=== PATIENT | female | born 1990 | race Caucasian/White ===

== ENCOUNTER 2019-01-11 14:49 | Emergency (ER) | payer SELFPAY ==
--- OUTSIDE RECORDS SUMMARY | 2019-01-11 15:09 | XMS REPORT ---
:1990 [facility] Address [address] [place] [address] Care Team Providers Name Role Phone Unavailable Unavailable Unavailable Problems This patient has no known problems. Allergies, Adverse Reactions, Alerts This patient has no known allergies or adverse reactions. Medications This patient has no known medications.
[2019-01-11] MEDS ORDERED: NA CHLORIDE 0.9% 1,000 ML ONE ×2 (15:20→17:01)
[2019-01-11] MEDS ORDERED: KETOROLAC 30 MG/ML INJ ONE (15:20)
[2019-01-11] MEDS ORDERED: ONDANSETRON 4 MG/2 ML VIAL ONE ×2 (15:20→17:40)
[2019-01-11 15:23] LABS: Absolute Lymphocytes (CBC) 0.7 K/uL (0.7-4.9); Absolute Monocytes 0.3 K/uL (0.1-1.3); Absolute Neutrophil 10.5 K/uL (1.8-8.0); Basophils % 0.2 % (0-1.3); Eosinophils % 1.1 % (0-4.4); Hematocrit 46.2 % (36.0-45.0); Lymphocytes % 5.7 % (15.3-44.8); MPV 9.9 fL (7.6-11.3); RBC Red Blood Cell Count 5.06 M/uL (3.86-4.86)
[2019-01-11 15:38] LABS: Albumin 4.2 g/dL (3.4-5.0); Bilirubin Total 0.5 mg/dL (0.2-1.0); Potassium 3.9 mmol/L (3.5-5.1); Protein, Total 7.7 g/dL (6.4-8.2)
[2019-01-11 15:44] LABS: Blood Morphology Comment NOT SEEN (NOT SEEN); Platelet Estimate ADEQ; Urine White Blood Cell Casts OK
[2019-01-11 15:51] LABS: Urine Bacteria <20 /HPF (<20); Urine Culture Reflex Order REFLEXED
--- NOTE | 2019-01-11 17:17 | RAD REPORT ---
EXAM DESCRIPTION: CT - Stone Protocol - 01/11/2019 5:05 pm CLINICAL HISTORY: Abdominal pain. Flank pain COMPARISON: 2013 TECHNIQUE: Computed axial tomography of the abdomen pelvis was obtained without oral or IV contrast. Lack of IV and oral contrast limits evaluation of solid organs, bowel, and vessels. Coronal reformat chelsi images were obtained and reviewed. All CT scans are performed using dose optimization technique as appropriate and may include automated exposure control or mA/KV adjustment according to patient size. FINDINGS: A renal calculus is not seen. An ureteral calculus is not noted. A bladder calculus is not present. The liver, spleen, pancreas and adrenals appear grossly normal There is no evidence of diverticulitis. The appendix appears normal Fluid within nondilated large and small bowel Cholecystectomy IMPRESSION: 2 millimeter nonobstructing right renal calculus Fluid within nondilated large and small bowel may indicate an enteritis
[2019-01-11] MEDS ORDERED: CEFTRIAXONE/SWI 1gm 1 GM/10 ML SYR ONE (17:44)
--- NOTE | 2019-01-11 17:46 | EDPHYS ---
Physician Documentation [facility] Name: Claire Singh Age: 28 yrs Sex: Female : 1990 Arrival Date: 01/11/2019 Time: 14:52 Bed 28 Private MD: ED Physician Gavin Oates HPI: 01/11 15:06 This 28 yrs old Female presents to ER via Ambulatory with complaints of Back ps1 Pain, Abdominal Pain, Vomiting. 15:06 patient states over the last 2 days she started having right flank pain with radiation ps1 to the groin. Chills no specific fever. Pain is dull and throbbing. Pain rated as moderate and fluctuating. Additionally states that she has had urinary symptoms of frequency and dysuria. . 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 - Social history:: Smoking status: Patient/guardian denies using tobacco. - Ebola Screening: : Patient negative for fever greater than or equal to 101.5 degrees Fahrenheit, and additional compatible Ebola Virus Disease symptoms Patient denies exposure to infectious person Patient denies travel to an Ebola-affected area in the 21 days before illness onset No symptoms or risks identified at this time. ROS: 16:02 ENT: Negative for injury, pain, and discharge, Neck: Negative for injury, pain, and ps1 swelling, Cardiovascular: Negative for chest pain, palpitations, and edema, Respiratory: Negative for shortness of breath, cough, wheezing, and pleuritic chest pain, Back: Negative for injury and pain, MS/Extremity: Negative for injury and deformity, Skin: Negative for injury, rash, and discoloration, Neuro: Negative for headache, weakness, numbness, tingling, and seizure. 16:02 Constitutional: Positive for chills. 16:02 Abdomen/GI: Positive for abdominal pain, nausea and vomiting. 16:02 : Positive for urinary symptoms, flank pain, urinary frequency. Exam: 16:02 Constitutional: This is a well developed, well nourished patient who is awake, alert, ps1 and in no acute distress. Head/Face: Normocephalic, atraumatic. Eyes: Pupils equal round and reactive to light, extra-ocular motions intact. Lids and lashes normal. Conjunctiva and sclera are non-icteric and not injected. Chest/axilla: Normal chest wall appearance and motion. Nontender with no deformity. No lesions are appreciated. Cardiovascular: Regular rate and rhythm. No gallops, murmurs, or rubs. Normal PMI, no JVD. No pulse deficits. Respiratory: Lungs have equal breath sounds bilaterally, clear to auscultation and percussion. No rales, rhonchi or wheezes noted. No increased work of breathing, no retractions or nasal flaring. Abdomen/GI: Soft, non-tender, with normal bowel sounds. No distension or tympany. No guarding or rebound. No evidence of tenderness throughout. Skin: Warm, dry with normal turgor. Normal color with no rashes, no lesions, and no evidence of cellulitis. MS/ Extremity: Pulses equal, no cyanosis. Neurovascular intact. Full, normal range of motion. Neuro: Awake and alert, GCS 15, oriented to person, place, time, and situation. Cranial nerves II-XII grossly intact. Sensory grossly intact. Vital Signs: 15:01 BP 138 / 77; Pulse 92; Resp 18; Temp 97.8; Pulse Ox 100% on R/A; Pain 8/10; sg 15:56 BP 100 / 59; Pulse 75; Resp 18 S; Temp 98(O); Pulse Ox 100% on R/A; ca1 16:34 BP 98 / 68; Pulse 73; Resp 18 S; Temp 98.6(O); Pulse Ox 100% on R/A; ca1 16:44 BP 96 / 63; Pulse 76; Resp 17 S; Temp 98.6(O); Pulse Ox 100% on R/A; ca1 17:24 BP 94 / 57; Pulse 76; Resp 18 S; Pulse Ox 100% on R/A; ca1 17:41 BP 90 / 58; Pulse 79; Resp 17 S; Pulse Ox 100% on R/A; ca1 MDM: 16:25 Patient medically screened. ps1 01/11 15:04 Order name: CBC with Diff; Complete Time: 16:25 ps1 01/11 15:04 Order name: Lipase; Complete Time: 16:25 ps1 01/11 15:04 Order name: CMP; Complete Time: 16:25 ps1 01/11 15:26 Order name: CBC Smear Scan; Complete Time: 16:25 EDMS 01/11 15:28 Order name: Urine Microscopic Only; Complete Time: 16:25 ca1 01/11 15:38 Order name: Urine Dipstick--Ancillary (enter results) ms 01/11 15:38 Order name: Urine --Ancillary (enter results) ms 01/11 15:52 Order name: Urine Culture EDMS 01/11 16:48 Order name: CT Stone Protocol; Complete Time: 17:27 ps1 01/11 15:04 Order name: IV Saline Lock; Complete Time: 15:16 ps1 01/11 15:04 Order name: Labs collected and sent; Complete Time: 15:16 ps1 01/11 15:04 Order name: Urine Dipstick-Ancillary (obtain specimen); Complete Time: 15:16 ps1 01/11 15:04 Order name: NPO; Complete Time: 15:05 ps1 Administered Medications: 15:15 Drug: NS 0.9% 1000 ml Route: IV; Rate: 1 bolus; Site: left antecubital; ca1 16:05 Follow up: Response: No adverse reaction; IV Status: Completed infusion ca1 15:15 Drug: Zofran 4 mg Route: IVP; Site: left antecubital; ca1 16:05 Follow up: Response: No adverse reaction; Nausea is decreased ca1 15:17 Drug: TORadol 30 mg Route: IVP; Site: left antecubital; ca1 16:05 Follow up: Response: No adverse reaction; Pain is decreased ca1 16:15 Drug: NS 0.9% 1000 ml Route: IV; Rate: 1 bolus; Site: left antecubital; ca1 17:30 Follow up: Response: No adverse reaction; IV Status: Completed infusion ca1 17:30 Drug: Rocephin 1 grams Route: IV; Rate: bolus; Site: left antecubital; ca1 17:50 Follow up: Response: No adverse reaction; IV Status: Completed infusion ca1 17:30 Drug: Zofran 4 mg Route: IVP; Site: left antecubital; ca1 17:50 Follow up: Response: No adverse reaction; Nausea is decreased ca1 Disposition: 01/11/19 17:45 Discharged to Home. Impression: Acute cystitis. - Condition is Stable. - Discharge Instructions: Urinary Tract Infection, Adult. - Prescriptions for Keflex 500 mg Oral Capsule - take 1 capsule by ORAL route every 8 hours for 10 days; 30 capsule. Pyridium 200 mg Oral Tablet - take 1 tablet by ORAL route every 8 hours for 3 days; 9 tablet. Zofran 4 mg Oral Tablet - take 1 tablet by ORAL route every 12 hours As needed; 20 tablet. - Medication Reconciliation Form, Thank You Letter, Antibiotic Education, Prescription Opioid Use form. - Follow up: Private Physician; When: As needed; Reason: Recheck today's complaints, Continuance of care, Re-evaluation by your physician. Follow up: Emergency Department; When: As needed; Reason: Fever > 102 F, Trouble breathing, Worsening of condition. - Problem is new. - Symptoms have improved. Signatures: Dispatcher [employer] [facility] Francisco Javier Mathews RN RN sg Gavin Oates MD MD ps1 Andie Liriano RN RN ca1 Corrections: (The following items were deleted from the chart) 17:49 17:33 Urine Culture+[id number].LAB.BRZ ordered. [facility] EDAR 17:54 17:45 01/11/2019 17:45 Discharged to Home. Impression: Acute cystitis. Condition is ca1 Stable. Forms are Medication Reconciliation Form, Thank You Letter, Antibiotic Education, Prescription Opioid Use. Follow up: Private Physician; When: As needed; Reason: Recheck today's complaints, Continuance of care, Re-evaluation by your physician. Follow up: Emergency Department; When: As needed; Reason: Fever > 102 F, Trouble breathing, Worsening of condition. Problem is new. Symptoms have improved. ps1 17:58 17:54 01/11/2019 17:45 Discharged to Home. Impression: Acute cystitis. Condition is ca1 Stable. Discharge Instructions: Urinary Tract Infection, Adult. Prescriptions for Keflex 500 mg Oral Capsule - take 1 capsule by ORAL route every 8 hours for 10 days; 30 capsule, Pyridium 200 mg Oral Tablet - take 1 tablet by ORAL route every 8 hours for 3 days; 9 tablet, Zofran 4 mg Oral Tablet - take 1 tablet by ORAL route every 12 hours As needed; 20 tablet. and Forms are Medication Reconciliation Form, Thank You Letter, Antibiotic Education, Prescription Opioid Use. Follow up: Private Physician; When: As needed; Reason: Recheck today's complaints, Continuance of care, Re-evaluation by your physician. Follow up: Emergency Department; When: As needed; Reason: Fever > 102 F, Trouble breathing, Worsening of condition. Problem is new. Symptoms have improved. ca1
--- NOTE | 2019-01-11 17:46 | ER ---
Nurse's Notes [facility] Name: Claire Singh Age: 28 yrs Sex: Female : 1990 Arrival Date: 01/11/2019 Time: 14:52 Bed 28 Private MD: Diagnosis: Acute cystitis Presentation: 01/11 15:00 Presenting complaint: Patient states: Bilateral Flank and lower back pain that radiates sg around to bilateral lower quadrants, reports urinary frequency as well as nausea and vomiting that began last night. Transition of care: patient was not received from another setting of care. Onset of symptoms was January 11, 2019. Risk Assessment: Do you want to hurt yourself or someone else? Patient reports no desire to harm self or others. Initial Sepsis Screen: Does the patient meet any 2 criteria? No. Patient's initial sepsis screen is negative. Does the patient have a suspected source of infection? No. Patient's initial sepsis screen is negative. Care prior to arrival: None. 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 - Social history:: Smoking status: Patient/guardian denies using tobacco. - Ebola Screening: : Patient negative for fever greater than or equal to 101.5 degrees Fahrenheit, and additional compatible Ebola Virus Disease symptoms Patient denies exposure to infectious person Patient denies travel to an Ebola-affected area in the 21 days before illness onset No symptoms or risks identified at this time. Screenin:00 Abuse screen: Denies threats or abuse. Denies injuries from another. Nutritional ca1 screening: No deficits noted. Tuberculosis screening: No symptoms or risk factors identified. Fall Risk None identified. Assessment: 15:00 General: Appears in no apparent distress. comfortable, Behavior is calm, cooperative, ca1 appropriate for age. Pain: Complains of pain in low back area Pain radiates to abdomen Pain currently is 10 out of 10 on a pain scale. Quality of pain is described as sharp, Pain began 1 day ago. Neuro: Level of Consciousness is awake, alert, obeys commands, Oriented to person, place, time, situation. Cardiovascular: Heart tones S1 S2 present Capillary refill < 3 seconds Patient's skin is warm and dry. Respiratory: Airway is patent Respiratory effort is even, unlabored, Respiratory pattern is regular, symmetrical, Breath sounds are clear. GI: Abdomen is round non-distended, Bowel sounds present X 4 quads. Abd is soft X 4 quads Abdomen is tender to palpation in right lower quadrant and left lower quadrant Reports nausea, vomiting. : Urine is cloudy, Reports burning with urination, urgency, urinary frequency. EENT: No deficits noted. No signs and/or symptoms were reported regarding the EENT system. Derm: Skin is intact, is healthy with good turgor, Skin is pink, warm \T\ dry. Musculoskeletal: Circulation, motion, and sensation intact. Capillary refill < 3 seconds. 15:49 Reassessment: Patient appears in no apparent distress at this time. Patient and/or ca1 family updated on plan of care and expected duration. Pain level reassessed. Patient is alert, oriented x 3, equal unlabored respirations, skin warm/dry/pink. 16:41 Reassessment: Patient appears in no apparent distress at this time. Patient and/or ca1 family updated on plan of care and expected duration. Pain level reassessed. Patient is alert, oriented x 3, equal unlabored respirations, skin warm/dry/pink. 17:24 Reassessment: Patient appears in no apparent distress at this time. Patient and/or ca1 family updated on plan of care and expected duration. Pain level reassessed. Patient is alert, oriented x 3, equal unlabored respirations, skin warm/dry/pink. Pt reported feeling nauseated. Notified Dr. Oates. 17:41 Reassessment: Dr. Oates at bedside. ca1 17:52 Reassessment: Patient appears in no apparent distress at this time. Patient is alert, ca1 oriented x 3, equal unlabored respirations, skin warm/dry/pink. Patient states feeling better. Vital Signs: 15:01 BP 138 / 77; Pulse 92; Resp 18; Temp 97.8; Pulse Ox 100% on R/A; Pain 8/10; sg 15:56 BP 100 / 59; Pulse 75; Resp 18 S; Temp 98(O); Pulse Ox 100% on R/A; ca1 16:34 BP 98 / 68; Pulse 73; Resp 18 S; Temp 98.6(O); Pulse Ox 100% on R/A; ca1 16:44 BP 96 / 63; Pulse 76; Resp 17 S; Temp 98.6(O); Pulse Ox 100% on R/A; ca1 17:24 BP 94 / 57; Pulse 76; Resp 18 S; Pulse Ox 100% on R/A; ca1 17:41 BP 90 / 58; Pulse 79; Resp 17 S; Pulse Ox 100% on R/A; ca1 ED Course: 14:52 Patient arrived in ED. mr 14:57 Gavin Oates MD is Attending Physician. ps1 14:59 Andie Liriano, EVY is Primary Nurse. ca1 15:01 Triage completed. sg 15:01 Arm band placed on. sg 15:02 Patient has correct armband on for positive identification. Placed in gown. Bed in low ca1 position. Side rails up X 1. Pulse ox on. NIBP on. Warm blanket given. 15:13 Inserted saline lock: 20 gauge in left antecubital area, using aseptic technique. Blood ca1 collected. 15:21 Urine collected: clean catch specimen, cloudy, Amount Voided: 70mL. ca1 16:[address] mw3 17:04 CT completed. Patient tolerated procedure well. Patient moved back from CT. mw3 17:05 CT Stone Protocol In Process Unspecified. EDMS 17:52 No provider procedures requiring assistance completed. IV discontinued, intact, ca1 bleeding controlled, No redness/swelling at site. Pressure dressing applied. 17:56 Primary Nurse role handed off by Andie Liriano, EVY ca1 17:57 Andie Liriano, EVY is Primary Nurse. ca1 Administered Medications: 15:15 Drug: NS 0.9% 1000 ml Route: IV; Rate: 1 bolus; Site: left antecubital; ca1 16:05 Follow up: Response: No adverse reaction; IV Status: Completed infusion ca1 15:15 Drug: Zofran 4 mg Route: IVP; Site: left antecubital; ca1 16:05 Follow up: Response: No adverse reaction; Nausea is decreased ca1 15:17 Drug: TORadol 30 mg Route: IVP; Site: left antecubital; ca1 16:05 Follow up: Response: No adverse reaction; Pain is decreased ca1 16:15 Drug: NS 0.9% 1000 ml Route: IV; Rate: 1 bolus; Site: left antecubital; ca1 17:30 Follow up: Response: No adverse reaction; IV Status: Completed infusion ca1 17:30 Drug: Rocephin 1 grams Route: IV; Rate: bolus; Site: left antecubital; ca1 17:50 Follow up: Response: No adverse reaction; IV Status: Completed infusion ca1 17:30 Drug: Zofran 4 mg Route: IVP; Site: left antecubital; ca1 17:50 Follow up: Response: No adverse reaction; Nausea is decreased ca1 Outcome: 17:45 Discharge ordered by MD. ps1 17:52 Discharged to home ambulatory, with significant other. ca1 17:52 Condition: stable 17:52 Discharge instructions given to patient, Instructed on discharge instructions, follow up and referral plans. medication usage, Demonstrated understanding of instructions, follow-up care, medications, Prescriptions given X 3. 17:54 Patient left the ED. ca1 17:58 Patient left the ED. ca1 Signatures: Dispatcher [employer] EDMS Francisco Javier Mathews, RN RN sg Suzan Castillo mr Gavin Oates MD MD ps1 Kailee Cervantes mw3 Andie Liriano RN RN ca1 Corrections: (The following items were deleted from the chart) 15:27 15:00 Patient has correct armband on for positive identification. Placed in gown. Bed ca1 in low position. Side rails up X 1. ca1 15:27 15:00 Pulse ox on. NIBP on. ca1 ca1 15:27 15:00 Warm blanket given. ca1 ca1 16:43 16:34 BP 98 / 68; Pulse 73bpm; Resp 18bpm; Spontaneous; Pulse Ox 100% RA; ca1 ca1
[2019-01-11 18:20] VITALS: O2SAT 100
[2019-01-11 18:22] VITALS: TEMP 98.6
[2019-01-11 18:26] VITALS: BP 90/58
[2019-01-11 20:23] LABS: Urine Blood TRACE (NEG); Urine Glucose NEGATIVE (NEG); Urine Protein NEGATIVE (NEG); Urine Specific Gravity 1.015 (1.005-1.030)
== END 2019-01-11 17:58 | disposition home or self-care (01) ==
LOC: ER 14:49
DX: N30.00 Acute cystitis without hematuria (principal)
CPT/HCPCS: 36415; 74176; 76377; 80053; 81003; 81015; 81025; 83690; 85025; 87086; 87088; 96361; 96365; 96375; 99284; J0696; J2405; J7030

== ENCOUNTER 2019-04-25 18:21 | Emergency (ER) | payer SELFPAY ==
--- OUTSIDE RECORDS SUMMARY | 2019-04-25 18:23 | XMS REPORT ---
:1990 [facility] Address [address] [place] [address] Care Team Providers Name Role Phone Unavailable Unavailable Unavailable Problems This patient has no known problems. Allergies, Adverse Reactions, Alerts This patient has no known allergies or adverse reactions. Medications This patient has no known medications.
[2019-04-25] MEDS ORDERED: MORPHINE 4 MG/ML SYR ONE (19:14)
[2019-04-25] MEDS ORDERED: ONDANSETRON 4 MG/2 ML VIAL ONE (19:14)
[2019-04-25] MEDS ORDERED: NA CHLORIDE 0.9% 1,000 ML ONE (19:14)
[2019-04-25 19:17] LABS: Urine Blood 2+ (NEG); Urine Glucose NEGATIVE (NEG); Urine Protein 2+ (NEG); Urine Specific Gravity >1.030 (1.005-1.030); Urine pH 5.5 (5.0-7.0)
[2019-04-25 19:20] LABS: Urine Bacteria 20-50 /HPF (<20); Urine Culture Reflex Order REFLEXED
[2019-04-25 19:33] LABS: Basophils % 0.2 % (0-1.3); Hematocrit 38.5 % (36.0-45.0); Lymphocytes % 29.2 % (15.3-44.8); MPV 9.8 fL (7.6-11.3); RBC Red Blood Cell Count 4.34 M/uL (3.86-4.86)
[2019-04-25 19:42] LABS: Albumin 3.7 g/dL (3.4-5.0); Bilirubin Direct 0.1 mg/dL (0-0.2); Bilirubin Total 0.3 mg/dL (0.2-1.0); Potassium 3.5 mmol/L (3.5-5.1); Protein, Total 6.8 g/dL (6.4-8.2)
--- NOTE | 2019-04-25 20:36 | RAD REPORT ---
EXAM DESCRIPTION: CTAbdomen Pelvis W Contrast - 04/25/2019 8:23 pm CLINICAL HISTORY: Abdominal pain. ABD PAIN COMPARISON: CT ABD PELVIS W CONTRAST dated 07/22/2014; CT ABD PELVIS W CONTRAST dated 05/24/2014; Sto ne Protocol dated 01/11/[address]: [address] imaging of the abdomen and pelvis was performed with 100 ml non-ionic IV cont rast. All CT scans are performed using dose optimization technique as appropriate and may include automated exposure control or mA/KV adjustment according to patient size. FINDINGS: The lung bases are clear.Cholecystectomy clips. The liver, spleen, pancreas, adrenal glands and left kidney are within normal limits. Punctate calcul us is seen inferior right kidney. No bowel obstruction, free air, free fluid or abscess. The appendix is normal. No evidence of signi ficant lymphadenopathy. No suspicious bony findings. IMPRESSION: No acute intra-abdominal or pelvic finding. Punctate calculus is seen in the inferior right kidney.
--- NOTE | 2019-04-25 21:14 | ER ---
Nurse's Notes [facility] Name: Claire Singh Age: 28 yrs Sex: Female : 1990 Arrival Date: 04/25/2019 Time: 18:23 Bed 30 Private MD: Diagnosis: Lower abdominal pain, unspecified;Urinary tract infection, site not specified Presentation: 04/25 18:30 Presenting complaint: Patient states: Lower abd pain that radiates to back. Transition la1 of care: patient was not received from another setting of care. Onset of symptoms was April 25, 2019. Risk Assessment: Do you want to hurt yourself or someone else? Patient reports no desire to harm self or others. Initial Sepsis Screen: Does the patient meet any 2 criteria? No. Patient's initial sepsis screen is negative. Does the patient have a suspected source of infection? No. Patient's initial sepsis screen is negative. Care prior to arrival: None. 18:30 Method Of Arrival: Ambulatory la1 18:30 Acuity: UYEN 3 la1 Historical: - Allergies: 18:32 No Known Allergies; la1 - Home Meds: 18:32 Latuda 60 mg oral tab 1 tab once daily [Active]; Topamax 200 mg Oral tab 1 tab 2 times la1 per day [Active]; - PMHx: 18:32 None; la1 - PSHx: 18:32 Cholecystectomy; ; la1 - Immunization history:: Adult Immunizations up to date. - Social history:: Smoking status: Patient/guardian denies using tobacco. - Ebola Screening: : No symptoms or risks identified at this time. Screenin:02 Abuse screen: Denies threats or abuse. Nutritional screening: No deficits noted. jb4 Tuberculosis screening: No symptoms or risk factors identified. Fall Risk None identified. Assessment: 19:02 General: Appears in no apparent distress. uncomfortable, Behavior is calm, cooperative, jb4 appropriate for age. Pain: Complains of pain in right low back and right lower quadrant Pain radiates to left lower quadrant Pain currently is 7 out of 10 on a pain scale. Quality of pain is described as crampy, Pain began 1 day ago. Is continuous. Neuro: Level of Consciousness is awake, alert, obeys commands, Oriented to person, place, time, situation. Cardiovascular: Patient's skin is warm and dry. Respiratory: Airway is patent Respiratory effort is even, unlabored, Respiratory pattern is regular, symmetrical. GI: Abdomen is round non-distended, Reports lower abdominal pain. : Reports pain in right lower quadrant(s) in lower back urinary frequency, since yesterday. Denies discharge, inability to void, pain with urination. EENT: No deficits noted. No signs and/or symptoms were reported regarding the EENT system. Derm: Skin is intact, Skin is pink, warm \T\ dry. Musculoskeletal: Circulation, motion, and sensation intact. Range of motion: intact in all extremities. 20:00 Reassessment: Patient appears in no apparent distress at this time. Patient and/or jb4 family updated on plan of care and expected duration. Pain level reassessed. Patient is alert, oriented x 3, equal unlabored respirations, skin warm/dry/pink. 21:00 Reassessment: Patient appears in no apparent distress at this time. Patient and/or jb4 family updated on plan of care and expected duration. Pain level reassessed. Patient is alert, oriented x 3, equal unlabored respirations, skin warm/dry/pink. Vital Signs: 18:32 BP 94 / 62; Pulse 86; Resp 16; Temp 98.7; Pulse Ox 98% on R/A; Weight 86.18 kg; Height la1 5 ft. 5 in. (165.10 cm); 19:20 BP 110 / 72; Pulse 63; Resp 16; Pulse Ox 99% on R/A; jb4 20:15 BP 105 / 55; Pulse 82; Resp 16; Pulse Ox 100% on R/A; jb4 21:00 BP 101 / 67; Pulse 60; Resp 16; Pulse Ox 100% on R/A; jb4 18:32 Body Mass Index 31.62 (86.18 kg, 165.10 cm) la1 ED Course: 18:23 Patient arrived in ED. as 18:31 Triage completed. la1 18:32 Arm band placed on left wrist. la1 18:33 Sommer Duffy FNP-C is [facility]. kb 18:33 Herbert Latif MD is Attending Physician. kb 18:54 Jovanny Woo RN is Primary Nurse. jb4 19:02 Patient has correct armband on for positive identification. Bed in low position. Call jb4 light in reach. Side rails up X 1. Pulse ox on. NIBP on. 19:07 Radiology exam delayed due to lab results not completed at this time. (BUN/Creatinine) vm2 test not completed at this time. 19:21 Inserted saline lock: 22 gauge in right antecubital area, using aseptic technique. jb5 Blood collected. 19:22 Liver (Hepatic) Function Sent. jb5 19:22 Lipase Sent. jb5 19:34 Lipase Sent. jb4 19:34 Hepatic Function Sent. jb4 19:34 Basic Metabolic Panel Sent. jb4 19:34 CBC with Diff Sent. jb4 19:34 Liver (Hepatic) Function Sent. jb4 19:34 Lipase Sent. jb4 19:34 Urine Culture Sent. jb4 19:41 Radiology exam delayed due to lab results not completed at this time. (BUN/Creatinine). 2 20:26 CT Abd/Pelvis - IV Contrast Only In Process Unspecified. EDMS 21:19 No provider procedures requiring assistance completed. IV discontinued, intact, jb4 bleeding controlled, No redness/swelling at site. Pressure dressing applied. Administered Medications: 19:26 Drug: Zofran 4 mg Route: IVP; Site: right antecubital; [facility] 19:50 Follow up: Response: No adverse reaction; Nausea is decreased [facility] 19:28 Drug: morphine 4 mg {Note: Rass acore 0, blood pressure 110/73.} Route: IVP; Site: [facility] right antecubital; 19:50 Follow up: Response: No adverse reaction; Pain is decreased; RASS: Alert and Calm (0) [facility] 19:29 Drug: NS 0.9% 1000 ml Route: IV; Rate: 1000 ml; Site: right antecubital; 4 20:30 Follow up: Response: No adverse reaction; IV Status: Completed infusion; IV Intake: [facility] 1000ml Intake: 20:30 IV: 1000ml; Total: 1000ml. 4 Outcome: 21:00 Discharge ordered by . ander 21:19 Discharged to home ambulatory, with significant other. jb4 21:19 Condition: stable 21:19 Discharge instructions given to patient, significant other, Instructed on discharge instructions, follow up and referral plans. medication usage, Demonstrated understanding of instructions, follow-up care, medications, Prescriptions given X 3. 21:22 Patient left the ED. jb4 Signatures: Dispatcher [employer] Sommer Grimes, FELL CUTTER-C FELL CUTTER-Cristina Ribeiro Lee, RN RN la1 Jovanny Woo RN RN jb4 Radha Santana5 Marlys Briceno [facility] [place]
--- NOTE | 2019-04-25 21:16 | EDPHYS ---
Physician Documentation [facility] Name: Claire Singh Age: 28 yrs Sex: Female : 1990 Arrival Date: 04/25/2019 Time: 18:23 Bed 30 Private MD: ED Physician Herbert Latif HPI: 04/25 21:12 This 28 yrs old Female presents to ER via Ambulatory with complaints of kb Abdominal Pain, Back Pain. 21:12 The patient presents with abdominal pain right lower quadrant. Onset: The kb symptoms/episode began/occurred today. The symptoms do not radiate. Associated signs and symptoms: Pertinent positives: nausea, Pertinent negatives: constipation, diarrhea, fever, vomiting. The symptoms are described as constant. Modifying factors: The symptoms are alleviated by nothing, the symptoms are aggravated by pressure. Severity of pain: At its worst the pain was moderate in the emergency department the pain is unchanged. The patient has not experienced similar symptoms in the past. The patient has not recently seen a physician. Historical: - Allergies: 18:32 No Known Allergies; la1 - Home Meds: 18:32 Latuda 60 mg oral tab 1 tab once daily [Active]; Topamax 200 mg Oral tab 1 tab 2 times la1 per day [Active]; - PMHx: 18:32 None; la1 - PSHx: 18:32 Cholecystectomy; ; la1 - Immunization history:: Adult Immunizations up to date. - Social history:: Smoking status: Patient/guardian denies using tobacco. - Ebola Screening: : No symptoms or risks identified at this time. ROS: 21:02 Constitutional: Negative for fever, chills, and weight loss, Cardiovascular: Negative kb for chest pain, palpitations, and edema, Respiratory: Negative for shortness of breath, cough, wheezing, and pleuritic chest pain, Back: Negative for injury and pain, : Negative for injury, bleeding, discharge, and swelling, MS/Extremity: Negative for injury and deformity, Skin: Negative for injury, rash, and discoloration, Neuro: Negative for headache, weakness, numbness, tingling, and seizure. 21:02 Abdomen/GI: Positive for abdominal pain, nausea, Negative for vomiting, diarrhea, constipation, abdominal cramps, abdominal distension, anorexia. Exam: 21:02 Constitutional: This is a well developed, well nourished patient who is awake, alert, kb and in no acute distress. Head/Face: Normocephalic, atraumatic. Chest/axilla: Normal chest wall appearance and motion. Nontender with no deformity. No lesions are appreciated. Cardiovascular: Regular rate and rhythm with a normal S1 and S2. No gallops, murmurs, or rubs. Normal PMI, no JVD. No pulse deficits. Respiratory: Lungs have equal breath sounds bilaterally, clear to auscultation and percussion. No rales, rhonchi or wheezes noted. No increased work of breathing, no retractions or nasal flaring. Back: No spinal tenderness. No costovertebral tenderness. Full range of motion. Skin: Warm, dry with normal turgor. Normal color with no rashes, no lesions, and no evidence of cellulitis. MS/ Extremity: Pulses equal, no cyanosis. Neurovascular intact. Full, normal range of motion. Neuro: Awake and alert, GCS 15, oriented to person, place, time, and situation. Cranial nerves II-XII grossly intact. Motor strength 5/5 in all extremities. Sensory grossly intact. Cerebellar exam normal. Normal gait. 21:02 Abdomen/GI: Inspection: abdomen appears normal, Bowel sounds: normal, in all quadrants, Palpation: soft, in all quadrants, moderate abdominal tenderness, in the right lower quadrant. Vital Signs: 18:32 BP 94 / 62; Pulse 86; Resp 16; Temp 98.7; Pulse Ox 98% on R/A; Weight 86.18 kg; Height la1 5 ft. 5 in. (165.10 cm); 19:20 BP 110 / 72; Pulse 63; Resp 16; Pulse Ox 99% on R/A; jb4 20:15 BP 105 / 55; Pulse 82; Resp 16; Pulse Ox 100% on R/A; jb4 21:00 BP 101 / 67; Pulse 60; Resp 16; Pulse Ox 100% on R/A; jb4 18:32 Body Mass Index 31.62 (86.18 kg, 165.10 cm) la1 MDM: 18:33 Patient medically screened. kb 21:00 Data reviewed: vital signs, nurses notes. Data interpreted: Pulse oximetry: on room air kb is 99 %. Interpretation: normal. Counseling: I had a detailed discussion with the patient and/or guardian regarding: the historical points, exam findings, and any diagnostic results supporting the discharge/admit diagnosis, lab results, radiology results, the need for outpatient follow up, a family practitioner, to return to the emergency department if symptoms worsen or persist or if there are any questions or concerns that arise at home. 04/25 19:05 Order name: Lipase kb 04/25 19:05 Order name: Hepatic Function kb 04/25 19:05 Order name: Basic Metabolic Panel; Complete Time: 19:55 kb 04/25 19:05 Order name: CBC with Diff; Complete Time: 19:36 kb 04/25 19:05 Order name: Urine Microscopic Only; Complete Time: 19:25 kb 04/25 19:06 Order name: Lipase; Complete Time: 19:55 EDMS 04/25 19:05 Order name: CT Abd/Pelvis - IV Contrast Only; Complete Time: 20:38 kb 04/25 19:06 Order name: Liver (Hepatic) Function; Complete Time: 19:55 EDMS 04/25 19:08 Order name: Urine --Ancillary (enter results); Complete Time: 19:25 kb 04/25 19:08 Order name: Urine Dipstick--Ancillary (enter results); Complete Time: 19:25 kb 04/25 19:21 Order name: Urine Culture EDIL 04/25 19:05 Order name: IV Saline Lock; Complete Time: 19:34 kb 04/25 19:05 Order name: Labs collected and sent; Complete Time: 19:34 kb Administered Medications: 19:26 Drug: Zofran 4 mg Route: IVP; Site: right antecubital; [facility] 19:50 Follow up: Response: No adverse reaction; Nausea is decreased jb4 19:28 Drug: morphine 4 mg {Note: Rass acore 0, blood pressure 110/73.} Route: IVP; Site: jb4 right antecubital; 19:50 Follow up: Response: No adverse reaction; Pain is decreased; RASS: Alert and Calm (0) 4 19:29 Drug: NS 0.9% 1000 ml Route: IV; Rate: 1000 ml; Site: right antecubital; 4 20:30 Follow up: Response: No adverse reaction; IV Status: Completed infusion; IV Intake: jb4 1000ml Disposition: 04/25/19 21:00 Discharged to Home. Impression: Lower abdominal pain, unspecified, Urinary tract infection, site not specified. - Condition is Stable. - Discharge Instructions: Urinary Tract Infection, Adult, [id number], Abdominal Pain, Adult, [id number]. - Prescriptions for Zofran 4 mg Oral Tablet - take 1 tablet by ORAL route every 6 hours As needed; 20 tablet. Macrobid 100 mg Oral Capsule - take 1 capsule by ORAL route every 12 hours for 7 days; 14 capsule. Diclofenac Sodium 75 mg Oral Tablet, Delayed Release (E.C.) - take 1 tablet by ORAL route 2 times per day As needed; 30 tablet. - Medication Reconciliation Form, Thank You Letter, Antibiotic Education, Prescription Opioid Use form. - Follow up: Emergency Department; When: As needed; Reason: Worsening of condition. Follow up: Private Physician; When: 2 - 3 days; Reason: Recheck today's complaints, Continuance of care, Re-evaluation by your physician. Addendum: 04/28/2019 07:20 Co-signature as Attending Physician, Herbert Latif MD. r n Signatures: Dispatcher [employer] EDMS Sommer Duffy, DUPLICATOR PUNCH OPERATOR-C DUPLICATOR PUNCH OPERATOR-Ckb Herbert Latif MD MD rn Attema, Lee RN RN la1 Jovanny Woo, RN RN jb4 Corrections: (The following items were deleted from the chart) 04/25 21:22 21:00 04/25/2019 21:00 Discharged to Home. Impression: Lower abdominal pain, jb4 unspecified; Urinary tract infection, site not specified. Condition is Stable. Forms are Medication Reconciliation Form, Thank You Letter, Antibiotic Education, Prescription Opioid Use. Follow up: Emergency Department; When: As needed; Reason: Worsening of condition. Follow up: Private Physician; When: 2 - 3 days; Reason: Recheck today's complaints, Continuance of care, Re-evaluation by your physician. kb
[2019-04-25 21:49] VITALS: TEMP 98.7
[2019-04-25 21:52] VITALS: O2SAT 100
[2019-04-25 21:53] VITALS: BP 101/67
== END 2019-04-25 21:22 | disposition home or self-care (01) ==
LOC: ER 18:21
DX: N39.0 Urinary tract infection, site not specified (principal)
CPT/HCPCS: 36415; 74177; 80048; 80076; 81003; 81015; 81025; 83690; 85025; 87077; 87086; 87088; 87186; 96361; 96374; 96375; 99284; J2405; J7030; Q9967

== ENCOUNTER 2019-06-11 09:59 | Emergency (ER) | payer SELFPAY ==
[2019-06-11] MEDS ORDERED: NA CHLORIDE 0.9% 1,000 ML ONE (10:35)
[2019-06-11] MEDS ORDERED: DIPHENHYDRAMINE 50 MG/ML VIAL ONE (10:36)
[2019-06-11] MEDS ORDERED: METOCLOPRAMIDE 10 MG/2mL INJ ONE (10:36)
[2019-06-11] MEDS ORDERED: KETOROLAC 30 MG/ML INJ ONE (11:48)
--- NOTE | 2019-06-11 11:50 | ER ---
Nurse's Notes [facility] Name: Claire Singh Age: 29 yrs Sex: Female : 1990 Arrival Date: 06/11/2019 Time: 10:01 Bed 15 Private MD: Roverto Garcia B Diagnosis: Headache Presentation: 06/11 10:12 Presenting complaint: Patient states: headache since yesterday morning, throbbing pain, iw constant, located front and back, denies hx of headaches/migraines. Transition of care: patient was not received from another setting of care. Onset of symptoms was June 10, 2019. Risk Assessment: Do you want to hurt yourself or someone else? Patient reports no desire to harm self or others. Initial Sepsis Screen: Does the patient meet any 2 criteria? No. Patient's initial sepsis screen is negative. Does the patient have a suspected source of infection? No. Patient's initial sepsis screen is negative. Care prior to arrival: None. 10:12 Method Of Arrival: Ambulatory iw 10:12 Acuity: UYEN 3 iw Triage Assessment: 10:57 Headache History: Denies prior headaches. General: Appears in no apparent distress. wh Pain: Also complains of no other associated symptoms. LENS BLANK GAUGER: 10:16 LMP 06/11/2019 iw Historical: - Allergies: 10:16 No Known Allergies; iw - Home Meds: 10:16 Latuda 60 mg Oral tab 1 tab once daily [Active]; Topamax 200 mg Oral tab 1 tab 2 times iw per day [Active]; benztropine 2 mg Oral tab 1 tab 2 times per day [Active]; - PMHx: 10:16 Bipolar disorder; iw - PSHx: 10:16 Cholecystectomy; ; Tubal ligation; iw - Immunization history:: Adult Immunizations up to date. - Social history:: Smoking status: . - Ebola Screening: : Patient negative for fever greater than or equal to 101.5 degrees Fahrenheit, and additional compatible Ebola Virus Disease symptoms Patient denies exposure to infectious person Patient denies travel to an Ebola-affected area in the 21 days before illness onset No symptoms or risks identified at this time. Screenin:52 Abuse screen: Denies threats or abuse. Denies injuries from another. Nutritional wh screening: No deficits noted. Tuberculosis screening: No symptoms or risk factors identified. Fall Risk None identified. Assessment: 10:55 General: Appears in no apparent distress. Behavior is calm, cooperative, appropriate wh for age. Pain: Complains of pain in head Pain does not radiate. Pain currently is 8 out of 10 on a pain scale. Pain began 1 day ago. Neuro: Level of Consciousness is awake, alert, obeys commands, confused, Oriented to person, place, time, situation, Appropriate for age Document Controller are equal bilaterally. Neuro: Reports headache frontal area. Cardiovascular: Heart tones S1 S2. Respiratory: Airway is patent Respiratory effort is even, unlabored, Respiratory pattern is regular, symmetrical, Breath sounds are clear bilaterally. GI: Abdomen is flat, non-distended. : No signs and/or symptoms were reported regarding the genitourinary system. EENT: No signs and/or symptoms were reported regarding the EENT system. Derm: Skin is intact, is healthy with good turgor, Skin is pink, warm \T\ dry. normal. Musculoskeletal: Circulation, motion, and sensation intact. 11:58 Reassessment: Patient appears in no apparent distress at this time. No changes from previously documented assessment. Patient and/or family updated on plan of care and expected duration. Pain level reassessed. Patient is alert, oriented x 3, equal unlabored respirations, skin warm/dry/pink. Patient states feeling better. Patient states symptoms have improved. Vital Signs: 10:16 BP 112 / 85; Pulse 90; Resp 16 S; Temp 98.2; Pulse Ox 98% on R/A; Pain 8/10; iw 10:45 BP 91 / 66; Pulse 75; Resp 18; Pulse Ox 97% on R/A; wh 11:45 BP 98 / 69; Pulse 69; Resp 18; Pulse Ox 98% on R/A; wh ED Course: 10:01 Patient arrived in ED. mr 10:02 Roverto Garcia MD is Private Physician. mr 10:07 Rey Trammell PA [facility]. jr8 10:07 Herbert Ltaif MD is Attending Physician. jr8 10:14 Triage completed. iw 10:16 Arm band placed on. iw 10:32 Tmioteo Lagunas is Primary Nurse. wh 10:45 Inserted saline lock: 22 gauge in right antecubital area, using aseptic technique. wh 10:52 Patient has correct armband on for positive identification. Bed in low position. Call light in reach. Side rails up X 1. Pulse ox on. NIBP on. 11:59 No provider procedures requiring assistance completed. IV discontinued, intact, bleeding controlled, No redness/swelling at site. Administered Medications: 10:51 Drug: NS 0.9% 1000 ml Route: IV; Rate: 1 bolus; Site: right antecubital; 11:51 Follow up: Response: No adverse reaction; IV Status: Completed infusion 10:51 Drug: Reglan 10 mg Route: IVP; Site: right antecubital; 11:51 Follow up: Response: No adverse reaction 10:51 Drug: Benadryl 25 mg Route: IVP; Site: right antecubital; 11:51 Follow up: Response: No adverse reaction 11:51 Drug: TORadol - Ketorolac 15 mg Route: IVP; Site: right antecubital; 11:51 Follow up: Response: No adverse reaction Outcome: 11:48 Discharge ordered by MD. ramachandran 11:59 Discharged to home ambulatory, with family. 11:59 Condition: good 11:59 Discharge instructions given to patient, Instructed on discharge instructions, follow up and referral plans. POC General Headache and Migraine Demonstrated understanding of instructions, follow-up care, POC 12:00 Patient left the ED. Signatures: Suzan Castillo Irene, RN RN Rey Lainez PA PA jr8 Timoteo Lagunas
--- NOTE | 2019-06-11 11:50 | EDPHYS ---
Physician Documentation [facility] Name: Claire Singh Age: 29 yrs Sex: Female : 1990 Arrival Date: 06/11/2019 Time: 10:01 Bed 15 Private MD: Roverto Garcia B ED Physician Herbert Latif HPI: 06/11 10:29 This 29 yrs old Female presents to ER via Ambulatory with complaints of jr8 Headache. 10:29 The patient describes the headache as a pressure, throbbing. Associated signs and jr8 symptoms: Pertinent positives: vomiting. Severity of symptoms: At its worst the pain was moderate. Headache History: Denies prior headaches. Pt reports POLLACK for 2 days, denies history, reports generalized headache with one episode of vomiting. Reports diarrhea for 3 weeks and children with similar symptoms. . 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 - Social history:: Smoking status: . - Ebola Screening: : Patient negative for fever greater than or equal to 101.5 degrees Fahrenheit, and additional compatible Ebola Virus Disease symptoms Patient denies exposure to infectious person Patient denies travel to an Ebola-affected area in the 21 days before illness onset No symptoms or risks identified at this time. ROS: 10:30 Constitutional: Negative for fever, chills, and weight loss, Eyes: Negative for injury, jr8 pain, redness, and discharge, ENT: Negative for injury, pain, and discharge, Neck: Negative for injury, pain, and swelling, Cardiovascular: Negative for chest pain, palpitations, and edema, Respiratory: Negative for shortness of breath, cough, wheezing, and pleuritic chest pain, Abdomen/GI: Negative for abdominal pain, nausea, vomiting, diarrhea, and constipation, Back: Negative for injury and pain, MS/Extremity: Negative for injury and deformity, Skin: Negative for injury, rash, and discoloration. 10:30 Neuro: Positive for headache, Negative for altered mental status, dizziness, gait disturbance, hearing loss, loss of consciousness, numbness, seizure activity, syncope. Exam: 10:30 Constitutional: This is a well developed, well nourished patient who is awake, alert, jr8 and in no acute distress. Head/Face: Normocephalic, atraumatic. Eyes: Pupils equal round and reactive to light, extra-ocular motions intact. Lids and lashes normal. Conjunctiva and sclera are non-icteric and not injected. Cornea within normal limits. Periorbital areas with no swelling, redness, or edema. ENT: Nares patent. No nasal discharge, no septal abnormalities noted. Tympanic membranes are normal and external auditory canals are clear. Oropharynx with no redness, swelling, or masses, exudates, or evidence of obstruction, uvula midline. Mucous membranes moist. Neck: Trachea midline, no thyromegaly or masses palpated, and no cervical lymphadenopathy. Supple, full range of motion without nuchal rigidity, or vertebral point tenderness. No Meningismus. Chest/axilla: Normal chest wall appearance and motion. Nontender with no deformity. No lesions are appreciated. Cardiovascular: Regular rate and rhythm with a normal S1 and S2. No gallops, murmurs, or rubs. Normal PMI, no JVD. No pulse deficits. Respiratory: Lungs have equal breath sounds bilaterally, clear to auscultation and percussion. No rales, rhonchi or wheezes noted. No increased work of breathing, no retractions or nasal flaring. Abdomen/GI: Soft, non-tender, with normal bowel sounds. No distension or tympany. No guarding or rebound. No evidence of tenderness throughout. Back: No spinal tenderness. No costovertebral tenderness. Full range of motion. Skin: Warm, dry with normal turgor. Normal color with no rashes, no lesions, and no evidence of cellulitis. MS/ Extremity: Pulses equal, no cyanosis. Neurovascular intact. Full, normal range of motion. Neuro: Awake and alert, GCS 15, oriented to person, place, time, and situation. Cranial nerves II-XII grossly intact. Motor strength 5/5 in all extremities. Sensory grossly intact. Cerebellar exam normal. Normal gait. Vital Signs: 10:16 BP 112 / 85; Pulse 90; Resp 16 S; Temp 98.2; Pulse Ox 98% on R/A; Pain 8/10; iw 10:45 BP 91 / 66; Pulse 75; Resp 18; Pulse Ox 97% on R/A; wh 11:45 BP 98 / 69; Pulse 69; Resp 18; Pulse Ox 98% on R/A; MDM: 10:07 Patient medically screened. jr8 11:47 Data reviewed: vital signs, nurses notes. Data interpreted: Pulse oximetry: on room air jr8 is 97 %. Counseling: I had a detailed discussion with the patient and/or guardian regarding: the historical points, exam findings, and any diagnostic results supporting the discharge/admit diagnosis, the need for outpatient follow up, a family practitioner. ED course: headache improved with medications, no neurological deficits, strict return precautions given. . Administered Medications: 10:51 Drug: NS 0.9% 1000 ml Route: IV; Rate: 1 bolus; Site: right antecubital; 11:51 Follow up: Response: No adverse reaction; IV Status: Completed infusion 10:51 Drug: Reglan 10 mg Route: IVP; Site: right antecubital; 11:51 Follow up: Response: No adverse reaction 10:51 Drug: Benadryl 25 mg Route: IVP; Site: right antecubital; 11:51 Follow up: Response: No adverse reaction 11:51 Drug: TORadol - Ketorolac 15 mg Route: IVP; Site: right antecubital; 11:51 Follow up: Response: No adverse reaction Disposition: 12:37 Co-signature as Attending Physician, Herbert Latif MD. rn Disposition: 06/11/19 11:48 Discharged to Home. Impression: Headache. - Condition is Stable. - Discharge Instructions: General Headache Without Cause, Migraine Headache. - Medication Reconciliation Form, Thank You Letter form. - Follow up: Private Physician; When: As needed; Reason: Recheck today's complaints, Re-evaluation by your physician. - Problem is new. - Symptoms have improved. Signatures: Ana Rosa Robison RN RN Herbert Latif MD MD rn Roszak, Josh, PA PA [facility] Timoteo Lagunas Corrections: (The following items were deleted from the chart) 12:00 11:48 06/11/2019 11:48 Discharged to Home. Impression: Headache. Condition is Stable. wh Forms are Medication Reconciliation Form, Thank You Letter, Antibiotic Education, Prescription Opioid Use. Follow up: Private Physician; When: As needed; Reason: Recheck today's complaints, Re-evaluation by your physician. Problem is new. Symptoms have improved. jr8
[2019-06-11 12:13] VITALS: TEMP 98.2
[2019-06-11 12:16] VITALS: BP 98/69; O2SAT 98
== END 2019-06-11 12:00 | disposition home or self-care (01) ==
LOC: ER 09:59
DX: R51 Headache (principal); F31.9 Bipolar disorder, unspecified
CPT/HCPCS: 96361; 96374; 96375; 99283; J2765; J7030

== ENCOUNTER 2020-03-24 17:49 | Emergency (ER) | payer SELFPAY ==
[2020-03-24 19:01] LABS: Absolute Lymphocytes (CBC) 2.3 K/uL (0.7-4.9); Basophils % 0.5 % (0-1.3); Hematocrit 37.6 % (36.0-45.0); Lymphocytes % 35.3 % (15.3-44.8); RBC Red Blood Cell Count 4.28 M/uL (3.86-4.86)
[2020-03-24 19:18] LABS: ALT/SGPT 20 U/L (12-78); AST/SGOT 14 U/L (15-37); Albumin 3.6 g/dL (3.4-5.0); Alkaline Phosphatase 67 U/L (45-117); BUN Blood Urea Nitrogen 14 mg/dL (7-18); Bicarbonate 23 mmol/L (21-32); Bilirubin Direct < 0.1 mg/dL (0-0.2); Bilirubin Total 0.2 mg/dL (0.2-1.0); Glucose Level 96 mg/dL (74-106); Magnesium 2.1 mg/dL (1.8-2.4); Potassium 3.9 mmol/L (3.5-5.1); Protein, Total 7.1 g/dL (6.4-8.2); Sodium Level 144 mmol/L (136-145); Troponin (Emerg Dept Use Only) < 0.02 ng/mL (0.0-0.045)
--- NOTE | 2020-03-24 19:25 | RAD REPORT ---
EXAM DESCRIPTION: RAD - Chest Single View - 03/24/2020 7:05 pm CLINICAL HISTORY: CHEST PAIN, left side COMPARISON: Portable October 2008 TECHNIQUE: AP portable chest image was obtained 03/24/2020 7:05 pm . FINDINGS: Lungs are clear. Heart and vasculature are normal. No measurable pleural effusion and no p neumothorax. No acute bony abnormality seen. No acute aortic findings suspected. No suspicious change from comparison. IMPRESSION: No acute cardiopulmonary process.
--- NOTE | 2020-03-24 19:45 | EDPHYS ---
Physician Documentation [facility] Name: Claire Singh Age: 29 yrs Sex: Female : 1990 Arrival Date: 03/24/2020 Time: 17:50 Bed 19 Private MD: ED Physician Herbert Latif HPI: 03/24 19:43 This 29 yrs old Female presents to ER via Ambulatory with complaints of Chest kb Pain. 19:43 The patient or guardian reports chest pain that is located primarily in the anterior kb chest wall, left. The pain does not radiate. Associated signs and symptoms: The patient has no apparent associated signs or symptoms. The chest pain is described as aching. Duration: The patient or guardian reports a single episode, that is still ongoing. Modifying factors: The symptoms are alleviated by nothing. the symptoms are aggravated by nothing. Severity of pain: At its worst the pain was mild in the emergency department the pain is unchanged. The patient has not experienced similar symptoms in the past. The patient has not recently seen a physician. PT reports she woke up from a nap at 1200 and had left sided chest pain. States she's had pains similar to this in the past, but nothing was ever found. 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 - Social history:: Smoking status: Reported history of juuling and/or vaping. ROS: 19:42 Constitutional: Negative for fever, chills, and weight loss, ENT: Negative for injury, kb pain, and discharge, Neck: Negative for injury, pain, and swelling, Respiratory: Negative for shortness of breath, cough, wheezing, and pleuritic chest pain, Abdomen/GI: Negative for abdominal pain, nausea, vomiting, diarrhea, and constipation, Back: Negative for injury and pain, MS/Extremity: Negative for injury and deformity, Skin: Negative for injury, rash, and discoloration, Neuro: Negative for headache, weakness, numbness, tingling, and seizure. 19:42 Cardiovascular: Positive for chest pain, Negative for edema, orthopnea, palpitations, paroxysmal nocturnal dyspnea. Exam: 19:42 Constitutional: This is a well developed, well nourished patient who is awake, alert, kb and in no acute distress. Head/Face: Normocephalic, atraumatic. Chest/axilla: Normal chest wall appearance and motion. Nontender with no deformity. No lesions are appreciated. Cardiovascular: Regular rate and rhythm with a normal S1 and S2. No gallops, murmurs, or rubs. Normal PMI, no JVD. No pulse deficits. Respiratory: Lungs have equal breath sounds bilaterally, clear to auscultation and percussion. No rales, rhonchi or wheezes noted. No increased work of breathing, no retractions or nasal flaring. Abdomen/GI: Soft, non-tender, with normal bowel sounds. No distension or tympany. No guarding or rebound. No evidence of tenderness throughout. Skin: Warm, dry with normal turgor. Normal color with no rashes, no lesions, and no evidence of cellulitis. MS/ Extremity: Pulses equal, no cyanosis. Neurovascular intact. Full, normal range of motion. Neuro: Awake and alert, GCS 15, oriented to person, place, time, and situation. Cranial nerves II-XII grossly intact. Motor strength 5/5 in all extremities. Sensory grossly intact. Cerebellar exam normal. Normal gait. Vital Signs: 17:56 BP 111 / 71; Pulse 76; Resp 15 S; Temp 97.1(TE); Pulse Ox 100% on R/A; Weight 90.72 kg ca1 (R); Height 5 ft. 6 in. (167.64 cm) (R); Pain 5/10; 19:39 BP 106 / 64; Pulse 74; Resp 16; Pulse Ox 99% on R/A; ls4 17:56 Body Mass Index 32.28 (90.72 kg, 167.64 cm) ca1 MDM: 18:15 Patient medically screened. kb 19:42 Data reviewed: vital signs, nurses notes. Data interpreted: Pulse oximetry: on room air kb is 99 %. Interpretation: normal. Counseling: I had a detailed discussion with the patient and/or guardian regarding: the historical points, exam findings, and any diagnostic results supporting the discharge/admit diagnosis, lab results, radiology results, the need for outpatient follow up, a family practitioner, to return to the emergency department if symptoms worsen or persist or if there are any questions or concerns that arise at home. 03/24 18:34 Order name: Basic Metabolic Panel; Complete Time: 19:26 kb 03/24 18:34 Order name: CBC with Diff; Complete Time: 19:05 kb 03/24 18:34 Order name: LFT's; Complete Time: 19:26 kb 03/24 18:34 Order name: Magnesium; Complete Time: 19:26 kb 03/24 18:34 Order name: Troponin (emerg Dept Use Only); Complete Time: 19:26 kb 03/24 18:34 Order name: XRAY Chest (1 view); Complete Time: 19:27 kb 03/24 18:03 Order name: EKG; Complete Time: 18:04 ls4 03/24 18:03 Order name: EKG - Nurse/Tech; Complete Time: 18:21 ls4 03/24 18:34 Order name: Cardiac monitoring; Complete Time: 18:38 kb 03/24 18:34 Order name: IV Saline Lock; Complete Time: 18:38 kb 03/24 18:34 Order name: Labs collected and sent; Complete Time: 18:38 kb 03/24 18:34 Order name: O2 Per Protocol; Complete Time: 18:38 kb 03/24 18:34 Order name: O2 Sat Monitoring; Complete Time: 18:38 kb Administered Medications: No medications were administered Disposition: 03/25 07:04 Co-signature as Attending Physician, Herbert Latif MD. rn Disposition: 03/24/20 19:44 Discharged to Home. Impression: Chest pain, unspecified. - Condition is Stable. - Discharge Instructions: Nonspecific Chest Pain, [id number]. - Medication Reconciliation Form, Thank You Letter, Antibiotic Education, Prescription Opioid Use form. - Follow up: Emergency Department; When: As needed; Reason: Worsening of condition. Follow up: Private Physician; When: 2 - 3 days; Reason: Recheck today's complaints, Continuance of care, Re-evaluation by your physician. Signatures: Dispatcher [employer] EDWI Sommer Duffy FNP-C FNP-Ckb Nieto, Roman, MD MD rn Stewart, Lisa, RN RN ls4 Andie Liriano RN RN ca1 Corrections: (The following items were deleted from the chart) 03/24 20:02 19:44 03/24/2020 19:44 Discharged to Home. Impression: Chest pain, unspecified. ls4 Condition is Stable. Forms are Medication Reconciliation Form, Thank You Letter, Antibiotic Education, Prescription Opioid Use. Follow up: Emergency Department; When: As needed; Reason: Worsening of condition. Follow up: Private Physician; When: 2 - 3 days; Reason: Recheck today's complaints, Continuance of care, Re-evaluation by your physician. kb
--- NOTE | 2020-03-24 19:45 | ER ---
Nurse's Notes [facility] Name: Claire Singh Age: 29 yrs Sex: Female : 1990 Arrival Date: 03/24/2020 Time: 17:50 Bed 19 Private MD: Diagnosis: Chest pain, unspecified Presentation: 03/24 17:56 Chief complaint: Patient states: Chest pain started at L side, constant and tight, non ca1 radiating. Started at around noon. Coronavirus screen: Proceed with normal triage. Patient denies a cough. Patient denies shortness of breath or difficulty breathing. Patient denies measured and/or subjective temperature greater than 100.4F prior to today's visit. Patient denies travel on a cruise ship or to a country the [facility] currently lists as an affected area. Patient denies contact with known and/or suspected case of COVID-19. Ebola Screen: Patient negative for fever greater than or equal to 101.5 degrees Fahrenheit, and additional compatible Ebola Virus Disease symptoms Patient denies exposure to infectious person. Patient denies travel to an Ebola-affected area in the 21 days before illness onset. No symptoms or risks identified at this time. Initial Sepsis Screen: Does the patient meet any 2 criteria? No. Patient's initial sepsis screen is negative. Does the patient have a suspected source of infection? No. Patient's initial sepsis screen is negative. Risk Assessment: Do you want to hurt yourself or someone else? Patient reports no desire to harm self or others. Onset of symptoms was March 24, 2020. 17:56 Method Of Arrival: Ambulatory ca1 17:56 Acuity: UYEN 3 ca1 Triage Assessment: 18:04 General: Appears in no apparent distress. comfortable, Behavior is calm, cooperative. ls4 Cardiovascular: Reports chest pain, Denies diaphoresis, fatigue, lightheadedness, nausea, palpitations, shortness of breath, syncope, vomiting, Capillary refill < 3 seconds Patient's skin is warm and dry. Rhythm is sinus rhythm. 18:04 Neuro: No deficits noted. Respiratory: Denies cough, shortness of breath. Derm: Skin is ls4 pink, warm \T\ dry. Musculoskeletal: No deficits noted. No signs and/or symptoms reported regarding the musculoskeletal system. 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 - Social history:: Smoking status: Reported history of juuling and/or vaping. Screenin:03 Abuse screen: Denies threats or abuse. Denies injuries from another. Nutritional ls4 screening: No deficits noted. Tuberculosis screening: No symptoms or risk factors identified. Fall Risk None identified. Assessment: 18:55 Reassessment: Patient appears in no apparent distress at this time. Patient and/or ls4 family updated on plan of care and expected duration. Pain level reassessed. Patient is alert, oriented x 3, equal unlabored respirations, skin warm/dry/pink. General: Appears in no apparent distress. comfortable. Pain: Pain does not radiate. Pain began suddenly, 4 hours ago. Neuro: No deficits noted. Cardiovascular: No deficits noted. Respiratory: No deficits noted. 19:39 Reassessment: Patient appears in no apparent distress at this time. Patient and/or ls4 family updated on plan of care and expected duration. Pain level reassessed. Patient is alert, oriented x 3, equal unlabored respirations, skin warm/dry/pink. Vital Signs: 17:56 BP 111 / 71; Pulse 76; Resp 15 S; Temp 97.1(TE); Pulse Ox 100% on R/A; Weight 90.72 kg ca1 (R); Height 5 ft. 6 in. (167.64 cm) (R); Pain 5/10; 19:39 BP 106 / 64; Pulse 74; Resp 16; Pulse Ox 99% on R/A; ls4 17:56 Body Mass Index 32.28 (90.72 kg, 167.64 cm) ca1 ED Course: 17:50 Patient arrived in ED. ag5 17:58 Triage completed. ca1 17:58 Arm band placed on right wrist. ca1 18:02 Yessenia Wesley, RN is Primary Nurse. ls4 18:03 Patient has correct armband on for positive identification. cardiac monitor on. Pulse ls4 ox on. NIBP on. 18:03 No provider procedures requiring assistance completed. Patient maintains SpO2 ls4 saturation greater than 95% on room air. 18:14 Sommer Duffy FNP-C is [facility]. kb 18:15 Herbert Latif MD is Attending Physician. kb 18:45 Initial lab(s) drawn, by me, sent to lab. EKG done, X-ray(s) taken. Inserted saline ls4 lock: 20 gauge in left antecubital area, using aseptic technique. Blood collected. 19:05 XRAY Chest (1 view) In Process Unspecified. EDMS 20:01 IV discontinued, intact, bleeding controlled, No redness/swelling at site. Pressure ls4 dressing applied. Administered Medications: No medications were administered Outcome: :44 Discharge ordered by . kb 20:01 Discharged to home ambulatory. ls4 20:01 Condition: good 20:01 Discharge instructions given to patient, Instructed on discharge instructions, follow up and referral plans. Demonstrated understanding of instructions, follow-up care, medications. 20:02 Patient left the ED. ls4 Signatures: Dispatcher [employer] EDFL Sommer Duffy FNP-C FNP-Ckb Stewart, Lisa, RN RN ls4 Andie Liirano RN RN ca1 Mickey Shen ag5 Corrections: (The following items were deleted from the chart) 19:00 18:03 Pain: ls4 ls4
--- OUTSIDE RECORDS SUMMARY | 2020-03-24 20:58 | XMS REPORT | Continuity of Care Document ---
:1990 Author Organization [facility] t Address [facility] [place] [address] Care Team Providers Name Role Phone Theodore Mendez MD Attending Clinician Manan CARUSO S Attending Clinician Problems This patient has no known problems. Allergies, Adverse Reactions, Alerts This patient has no known allergies or adverse reactions. Medications This patient has no known medications. Procedures This patient has no known procedures. Encounters Start End Encounter Admission Attending Care Care Encounter Source Date/Time Date/Time Type Type Clinicians Facility Department ID 2019-05-14 2019-05-14 Emergency Aba Mendez [facility] [id number] 11:11:27 13:34:00 Annemarie Hinkle [id number] [place] [id number] [place] [id number] Results This patient has no known results.
[2020-03-24 21:01] VITALS: TEMP 97.1
[2020-03-24 21:03] VITALS: BP 106/64; O2SAT 99
--- NOTE | 2020-03-25 07:24 | EKG ---
Test Date: 2020-03-24 Test Time: 18:05:17 Vehicle Window Tinter: CARLITO MEASUREMENT RESULTS: Intervals: Rate: 73 WV: 156 QRSD: 96 QT: 372 QTc: 409 [place]: P: 54 WV: 156 QRS: 14 T: 58 INTERPRETIVE STATEMENTS: Normal sinus rhythm Normal ECG No previous ECG available for comparison Electronically Signed On 03-25-20 07:22:58 CDT by Niranjan Genao
== END 2020-03-24 20:02 | disposition home or self-care (01) ==
LOC: ER 17:49
DX: R07.9 Chest pain, unspecified (principal); Z72.0 Tobacco use
CPT/HCPCS: 36415; 71045; 80048; 80076; 83735; 84484; 85025; 93005; 99285

== ENCOUNTER 2020-10-18 08:10 | Emergency (ER) | payer SELFPAY ==
[2020-10-18] MEDS ORDERED: NA CHLORIDE 0.9% 1,000 ML ONE ×2 (09:14→10:55)
[2020-10-18 09:20] LABS: Absolute Lymphocytes (CBC) 2.2 K/uL (0.7-4.9); Basophils % 0.4 % (0-1.3); Hematocrit 41.2 % (36.0-45.0); Lymphocytes % 27.6 % (15.3-44.8); MPV 9.8 fL (7.6-11.3); RBC Red Blood Cell Count 4.89 M/uL (3.86-4.86)
--- NOTE | 2020-10-18 09:26 | RAD REPORT ---
EXAM DESCRIPTION: RAD - Chest Single View - 10/18/2020 9:07 am CLINICAL HISTORY: DYSPNEA Chest pain. COMPARISON: Chest Single View dated 03/24/2020; ABDOMEN 1 VIEW KUB dated 07/22/2014; CHEST SINGLE VIE W dated 10/18/2008; CHEST SINGLE VIEW dated 06/27/2008 FINDINGS: Portable technique limits examination quality. The lungs are grossly clear. The heart is normal in size. No displaced fractures. IMPRESSION: No acute intrathoracic process suspected.
[2020-10-18 09:38] LABS: ALT/SGPT 20 U/L (12-78); AST/SGOT 17 U/L (15-37); Albumin 4.4 g/dL (3.4-5.0); Alkaline Phosphatase 76 U/L (45-117); BUN Blood Urea Nitrogen 11 mg/dL (7-18); Bicarbonate 23 mmol/L (21-32); Bilirubin Direct 0.2 mg/dL (0-0.2); Bilirubin Total 0.6 mg/dL (0.2-1.0); Ferritin 37.1 ng/mL (8-388); Glucose Level 99 mg/dL (74-106); Lipase 96 U/L (73-393); NT PRO-BNP 68 pg/mL (<125); Potassium 3.5 mmol/L (3.5-5.1); Protein, Total 8.2 g/dL (6.4-8.2); Sodium Level 140 mmol/L (136-145); Troponin (Emerg Dept Use Only) < 0.02 ng/mL (0.0-0.045)
[2020-10-18 11:08] LABS: SARS-COV-2 RT PCR NEGATIVE (NEGATIVE)
--- NOTE | 2020-10-18 11:21 | RAD REPORT ---
EXAM DESCRIPTION: CT - Chest For Pe Angio - 10/18/2020 11:10 am CLINICAL HISTORY: Chest pain. DYSPNEA COMPARISON: No comparisons TECHNIQUE: CT angiogram of the pulmonary arteries was performed with MIP. All CT scans are performed using dose optimization technique as appropriate and may include automated exposure control or mA/KV adjustment according to patient size. FINDINGS: Mild respiratory motion artifact is present which limits assessment. No evidence of pulmonary thromboembolism. No acute aortic finding demonstrated. The lungs are clear. No significant pericardial or pleural fluid. No concerning bony finding. IMPRESSION: No evidence of pulmonary thromboembolism. No acute lung findings.
--- NOTE | 2020-10-18 11:26 | RAD REPORT ---
EXAM DESCRIPTION: CTAbdomen Pelvis W Contrast - 10/18/2020 11:10 am CLINICAL HISTORY: Abdominal pain. diarrhea;Abd pain COMPARISON: Abdomen Pelvis W Contrast dated 04/25/2019; CT ABD PELVIS W CONTRAST dated 07/22/2014; CT ABD PELVIS W CONTRAST dated 05/24/2014 TECHNIQUE: Biphasic CT imaging of the abdomen and pelvis was performed with 100 ml non-ionic IV cont rast. All CT scans are performed using dose optimization technique as appropriate and may include automated exposure control or mA/KV adjustment according to patient size. FINDINGS: The lung bases are clear.Cholecystectomy clips. The liver, spleen, pancreas, adrenal glands and kidneys are within normal limits. Tiny punctate right renal calculus suspected. No bowel obstruction, free air, free fluid or abscess. The appendix is not identified as a discrete structure, however, no secondary findings of appendicitis are identified. No evidence of significan t lymphadenopathy. No suspicious bony findings. IMPRESSION: No acute intra-abdominal or pelvic finding.
--- NOTE | 2020-10-18 11:50 | EDPHYS ---
Physician Documentation [facility] Name: Claire Singh Age: 30 yrs Sex: Female : 1990 Arrival Date: 10/18/2020 Time: 08:15 Bed 6 Private MD: Roverto Garcia B ED Physician Herbert Latif HPI: 10/18 08:55 This 30 yrs old Female presents to ER via Ambulatory with complaints of rn Shortness Of Breath, Diarrhea. 08:55 The patient has shortness of breath with light activity. Onset: The symptoms/episode rn began/occurred 2 day(s) ago. Duration: The symptoms are intermittent. The patient's shortness of breath is aggravated by exertion, light activity, is alleviated by rest. Associated signs and symptoms: Pertinent positives: diarrhea, Pertinent negatives: chest pain, non-productive cough, productive cough, fever, hemoptysis, loss of consciousness. Severity of symptoms: At their worst the symptoms were mild in the emergency department the symptoms are unchanged. The patient has not experienced similar symptoms in the past. The patient has not recently seen a physician. Reports 2 days of sob and diarrhea, no blood in stool, yellow and mucous in stool, has never happened before, no cough or hemoptysis. No chest pain. No hx of anemia. Also reports generalized fatigue and nasal congestion.. 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 - Social history:: Smoking status: . - Family history:: not pertinent. - Hospitalizations: : No recent hospitalization is reported. ROS: 08:55 Constitutional: Negative for fever, chills, and weight loss, Eyes: Negative for injury, rn pain, redness, and discharge, ENT: + nasal congestion Neck: Negative for injury, pain, and swelling, Cardiovascular: Negative for chest pain, palpitations, and edema, Respiratory: Negative for cough, wheezing, and pleuritic chest pain, Abdomen/GI: + diarrhea MS/Extremity: Negative for injury and deformity, Skin: Negative for injury, rash, and discoloration, Neuro: Negative for headache, numbness, tingling, and seizure. Exam: 08:55 Constitutional: This is a well developed, well nourished patient who is awake, alert, rn mild tachypnea Head/Face: Normocephalic, atraumatic. Eyes: Pupils equal round and reactive to light, extra-ocular motions intact. Lids and lashes normal. Conjunctiva and sclera are non-icteric and not injected. Cornea within normal limits. Periorbital areas with no swelling, redness, or edema. ENT: no stridor Cardiovascular: Regular rate and rhythm. No pulse deficits. Respiratory: Mild tachypnea Abdomen/GI: soft, non-tender Skin: Warm, dry with normal turgor. Normal color with no rashes, no lesions, and no evidence of cellulitis. MS/ Extremity: Pulses equal, no cyanosis. Neuro: Awake and alert, GCS 15 Vital Signs: 08:30 BP 142 / 104; Pulse 58; Resp 16; Temp 98.1; Pulse Ox 100% ; Weight 99.34 kg; Height 5 sv ft. 6 in. (167.64 cm); 09:15 BP 124 / 79; Pulse 81; Resp 22; Pulse Ox 100% on R/A; tw2 10:27 BP 139 / 97; Pulse 60; Resp 19; Pulse Ox 100% on R/A; tw2 11:29 BP 125 / 79; Pulse 79; Resp 19; Pulse Ox 99% on R/A; tw2 08:30 Body Mass Index 35.35 (99.34 kg, 167.64 cm) sv MDM: 08:27 Patient medically screened. rn 11:48 Differential diagnosis: Anemia Anxiety Reaction Bronchitis pneumonia, Pneumothorax rn pulmonary edema, Pulmonary Embolism reactive airway disease, COVID, viral syndrome. Data reviewed: vital signs, nurses notes, lab test result(s), EKG, radiologic studies, CT scan, plain films, and as a result, I will discharge patient. Counseling: I had a detailed discussion with the patient and/or guardian regarding: the historical points, exam findings, and any diagnostic results supporting the discharge/admit diagnosis, lab results, radiology results, the need for outpatient follow up, to return to the emergency department if symptoms worsen or persist or if there are any questions or concerns that arise at home. Response to treatment: the patient's symptoms have mildly improved after treatment, and as a result, I will discharge patient. Special discussion: I discussed with the patient/guardian in detail that at this point there is no indication for admission to the hospital. It is understood, however, that if the symptoms persist or worsen the patient needs to return immediately for re-evaluation. ED course: No acute findings in CXR, neg ct chest/abd/pelvis, no PE, normal vitals, no oxygen requirement, possible early viral infection, could even be too early and have false neg COVID test. Symptoms of dyspnea likely magnified by self-reported anxiety and hyperventilation. Patient's respiration improve while ambulatory to bathroom and does not seem winded, and when on phone hyperventilation improves as well. . 10/18 08:36 Order name: CBC with Diff rn 10/18 08:36 Order name: Basic Metabolic Panel rn 10/18 08:36 Order name: Hepatic Function rn 10/18 08:36 Order name: Lipase rn 10/18 08:36 Order name: Procalcitonin; Complete Time: 10:27 rn 10/18 08:36 Order name: Ferritin; Complete Time: 09:46 rn 10/18 08:36 Order name: Lactate; Complete Time: 10:27 rn 10/18 08:36 Order name: CRP; Complete Time: 09:46 rn 10/18 08:36 Order name: BNP; Complete Time: 09:46 rn 10/18 08:36 Order name: Troponin (emerg Dept Use Only); Complete Time: 09:46 rn 10/18 08:37 Order name: CBC with Automated Diff; Complete Time: 09:34 EDMS 10/18 08:37 Order name: Basic Metabolic Panel; Complete Time: 09:46 EDMS 10/18 08:36 Order name: IV Start; Complete Time: 09:15 rn 10/18 08:36 Order name: Labs collected and sent; Complete Time: 09:15 rn 10/18 08:36 Order name: Urine Test (obtain specimen); Complete Time: 10:26 rn 10/18 08:36 Order name: Urine Dipstick-Ancillary (obtain specimen); Complete Time: 10:26 rn 10/18 08:36 Order name: XRAY Chest (1 view); Complete Time: 09:34 rn 10/18 08:37 Order name: Liver (Hepatic) Function; Complete Time: 09:46 EDMS 10/18 08:37 Order name: Lipase; Complete Time: 09:46 EDMS 10/18 10:30 Order name: Urine Dipstick--Ancillary (enter results) bd 10/18 10:30 Order name: Urine --Ancillary (enter results) bd 10/18 10:45 Order name: CT Chest For PE Angio; Complete Time: 11:28 rn 10/18 10:45 Order name: CT Abd/Pelvis - IV Contrast Only; Complete Time: 11:28 rn 10/18 11:08 Order name: COVID-19/FLU A+B; Complete Time: 11:28 EDMS Administered Medications: 09:08 Drug: NS 0.9% 1000 ml Route: IV; Rate: 1000 ml; Site: right antecubital; tw2 10:42 Follow up: Response: No adverse reaction; IV Status: Completed infusion; IV Intake: tw2 1000ml 10:42 Drug: NS 0.9% 1000 ml Route: IV; Rate: 1000 ml; Site: right antecubital; tw2 12:15 Follow up: Response: No adverse reaction; IV Status: Completed infusion; IV Intake: tw2 1000ml Disposition: 10/18/20 11:50 Discharged to Home. Impression: Dyspnea, unspecified, Dehydration, Diarrhea, unspecified. - Condition is Stable. - Discharge Instructions: Dehydration, Adult, Diarrhea, Adult, Shortness of Breath. - Medication Reconciliation Form, Thank You Letter, Antibiotic Education, Prescription Opioid Use, Work release form, SBAR form form. - Follow up: Private Physician; When: As needed; Reason: Recheck today's complaints, Re-evaluation by your physician. - Problem is new. - Symptoms have improved. Signatures: Dispatcher [employer] [facility] Sonia Avila, RN Herbert Mtz MD MD rn Wise, Tara, RN RN tw2 Corrections: (The following items were deleted from the chart) 10:00 08:37 CORONAVIRUS+MR.LAB.BRZ ordered. [facility] 10:01 08:37 Influenza Screen (A \T\ B)+BA.LAB.BRZ ordered. [facility] 12:14 11:50 10/18/2020 11:50 Discharged to Home. Impression: Dyspnea, unspecified; tw2 Dehydration; Diarrhea, unspecified. Condition is Stable. Forms are Work release form, SBAR form, Medication Reconciliation Form, Thank You Letter, Antibiotic Education, Prescription Opioid Use. Follow up: Private Physician; When: As needed; Reason: Recheck today's complaints, Re-evaluation by your physician. Problem is new. Symptoms have improved. rn
--- NOTE | 2020-10-18 11:50 | ER ---
Nurse's Notes [facility] Name: Claire Singh Age: 30 yrs Sex: Female : 1990 Arrival Date: 10/18/2020 Time: 08:15 Bed 6 Private MD: Roverto Garcia B Diagnosis: Dyspnea, unspecified;Dehydration;Diarrhea, unspecified Presentation: 10/18 08:30 Chief complaint: Patient states: diarrhea x 2 days, SOB and cough x 1 day. Coronavirus sv screen: Client denies travel out of the [place] in the last 14 days. Client presents with at least one sign or symptom that may indicate coronavirus-19. Standard/surgical mask placed on the client. Provider contacted for isolation considerations. Ebola Screen: No symptoms or risks identified at this time. Initial Sepsis Screen: Does the patient meet any 2 criteria? No. Patient's initial sepsis screen is negative. Does the patient have a suspected source of infection? No. Patient's initial sepsis screen is negative. Risk Assessment: Do you want to hurt yourself or someone else? Patient reports no desire to harm self or others. Onset of symptoms was October 16, 2020. 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 - Social history:: Smoking status: . - Family history:: not pertinent. - Hospitalizations: : No recent hospitalization is reported. Screenin:46 Abuse screen: Denies threats or abuse. Nutritional screening: No deficits noted. tw2 Tuberculosis screening: No symptoms or risk factors identified. Fall Risk None identified. Assessment: 09:05 General: Appears uncomfortable, obese, well groomed, Behavior is anxious, restless. tw2 Pain: Denies pain. Neuro: Level of Consciousness is awake, alert, obeys commands, Oriented to person, place, time, situation. Cardiovascular: Rhythm is regular. Respiratory: Airway is patent Respiratory effort is even, unlabored, Respiratory pattern is regular, hyperventilation pt encouraged to take slow deep breaths and placed on 2L nc at this time, provider notified. Respiratory: Reports shortness of breath at rest on exertion. GI: Reports diarrhea. : No signs and/or symptoms were reported regarding the genitourinary system. EENT: No signs and/or symptoms were reported regarding the EENT system. Derm: No signs and/or symptoms reported regarding the dermatologic system. Musculoskeletal: Range of motion: intact in all extremities. 10:28 Reassessment: Patient appears in no apparent distress at this time. Patient and/or tw2 family updated on plan of care and expected duration. Pain level reassessed. Patient is alert, oriented x 3, equal unlabored respirations, skin warm/dry/pink. 11:29 Reassessment: Patient appears in no apparent distress at this time. Patient and/or tw2 family updated on plan of care and expected duration. Pain level reassessed. Patient is alert, oriented x 3, equal unlabored respirations, skin warm/dry/pink. 11:46 Reassessment: provider at bedside at this time. tw2 12:14 Reassessment: Patient appears in no apparent distress at this time. Patient and/or tw2 family updated on plan of care and expected duration. Pain level reassessed. Patient is alert, oriented x 3, equal unlabored respirations, skin warm/dry/pink. Vital Signs: 08:30 BP 142 / 104; Pulse 58; Resp 16; Temp 98.1; Pulse Ox 100% ; Weight 99.34 kg; Height 5 sv ft. 6 in. (167.64 cm); 09:15 BP 124 / 79; Pulse 81; Resp 22; Pulse Ox 100% on R/A; tw2 10:27 BP 139 / 97; Pulse 60; Resp 19; Pulse Ox 100% on R/A; tw2 11:29 BP 125 / 79; Pulse 79; Resp 19; Pulse Ox 99% on R/A; tw2 08:30 Body Mass Index 35.35 (99.34 kg, 167.64 cm) sv ED Course: 08:15 Patient arrived in ED. mr 08:15 Roverto Garcia MD is Private Physician. mr 08:27 Herbert Latif MD is Attending Physician. rn 08:32 Triage completed. sv 08:33 Arm band placed on. sv 08:41 Moeller, Kendra, RN is Primary Nurse. tw2 09:05 Inserted saline lock: 20 gauge in right antecubital area, using aseptic technique. tw2 Blood collected. 09:07 XRAY Chest (1 view) In Process Unspecified. EDMS 09:46 Patient has correct armband on for positive identification. Bed in low position. Call light in reach. Notified ED physician of a critical lab result(s). lactate 2.7. 09:58 Lipase Sent. sv 09:58 Hepatic Function Sent. sv 09:58 Basic Metabolic Panel Sent. sv 09:58 CBC with Diff Sent. sv 10:26 Urine collected: clean catch specimen, clear. dh3 11:09 CT Chest For PE Angio In Process Unspecified. EDMS 11:09 CT Abd/Pelvis - IV Contrast Only In Process Unspecified. EDMS 12:14 No provider procedures requiring assistance completed. IV discontinued, intact, tw2 bleeding controlled, No redness/swelling at site. Pressure dressing applied. Administered Medications: 09:08 Drug: NS 0.9% 1000 ml Route: IV; Rate: 1000 ml; Site: right antecubital; tw2 10:42 Follow up: Response: No adverse reaction; IV Status: Completed infusion; IV Intake: tw2 1000ml 10:42 Drug: NS 0.9% 1000 ml Route: IV; Rate: 1000 ml; Site: right antecubital; tw2 12:15 Follow up: Response: No adverse reaction; IV Status: Completed infusion; IV Intake: tw2 1000ml Intake: 10:42 IV: 1000ml; Total: 1000ml. tw2 12:15 IV: 1000ml; Total: 2000ml. tw2 Outcome: 11:50 Discharge ordered by . rn 12:14 Discharged to home ambulatory. tw2 12:14 Condition: stable 12:14 Discharge instructions given to patient, Instructed on discharge instructions, follow up and referral plans. Demonstrated understanding of instructions, follow-up care. 12:14 Patient left the ED. tw2 Signatures: Dispatcher [employer] Sonia Zavala RN RN sv Rivera, Mary mr Nieto, Roman, MD MD rn Smirch, Shelby, RN RN ss Wise, Tara, RN RN tw2 Alise Patrick 3
[2020-10-18 12:23] LABS: Urine Blood NEGATIVE (NEG); Urine Glucose NEGATIVE (NEG); Urine Protein NEGATIVE (NEG); Urine pH 7.5 (5.0-7.0)
[2020-10-18 12:32] VITALS: TEMP 98.1
[2020-10-18 12:36] VITALS: BP 125/79; O2SAT 99
--- OUTSIDE RECORDS SUMMARY | 2020-10-19 18:49 | XMS REPORT | Continuity of Care Document ---
:1990 Author Organization [facility] t Address [address] [place] [address] Care Team Providers Name Role Phone Theodore [...] Department ID 2019-05-14 2019-05-14 Emergency Aba Mendez [facility] [id number] 11:11:27 13:34:00 Annemarie Hinkle [id number] [place] [id number] [place] [phone] [id number] Results This patient has no known results.
== END 2020-10-18 12:14 | disposition home or self-care (01) ==
LOC: ER 08:10
DX: R06.02 Shortness of breath (principal); E86.0 Dehydration; R19.7 Diarrhea, unspecified; Z20.822 Contact with and (suspected) exposure to COVID-19; F31.9 Bipolar disorder, unspecified
CPT/HCPCS: 0240U; 36415; 71045; 71275; 74177; 80048; 80076; 81003; 81025; 82728; 83605; 83690; 83880; 84145; 84484; 85025; 86140; 96360; 96361; 99284; J7030; Q9967

== ENCOUNTER 2021-01-05 14:26 | Emergency (ER) | payer SELFPAY ==
--- OUTSIDE RECORDS SUMMARY | 2021-01-05 14:28 | XMS REPORT | Continuity of Care Document ---
:1990 Author Organization [facility] t Address [address] [place] [address] Care Team Providers Name Role Phone Singer ASHTON Attending Clinician Doctor Unassigned, Name Attending Clinician Unavailable Theodore Mendez MD Attending Clinician Manan CARUSO S Attending Clinician Problems This patient has no known problems. Allergies, Adverse Reactions, Alerts This patient has no known allergies or adverse reactions. Medications This patient has no known medications. Procedures This patient has no known procedures. Encounters Start End Encounter Admission Attending Care Care Encounter Source Date/Time Date/Time Type Type Clinicians Facility Department ID 2020-11-04 2020-11-04 NIRMALA Ronquillo [id number] 09:34:00 10:58:00 Gavin Diaz [id number] [place] [id number] [place] [id number] 2020-11-04 2020-11-04 Orders Doctor SAWYER [id number] 00:00:00 00:00:00 Only UnassignedSAMARA [id number] [place] [facility] [id number] 2019-05-14 2019-05-14 Emergency Aba Mendez [id number] 11:11:27 13:34:00 Annemarie Hinkle [id number] [place] [id number] [place] [id number] [id number] Results This patient has no known results.
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
[2021-01-05 17:48] VITALS: BP 139/95; TEMP 98.1; O2SAT 100
== END 2021-01-05 17:42 | disposition home or self-care (01) ==
LOC: ER 14:26
DX: S16.1XXA Strain of muscle, fascia and tendon at neck level, initial encounter (principal); S09.90XA Unspecified injury of head, initial encounter; W22.8XXA Striking against or struck by other objects, initial encounter
CPT/HCPCS: 70450; 72125; 99283

== ENCOUNTER 2021-02-09 17:00 | Emergency (ER) | payer OTHER, SELFPAY ==
[2012-01-29 21:32] VITALS: BP 137/80
--- OUTSIDE RECORDS SUMMARY | 2021-02-09 17:03 | XMS REPORT | Continuity of Care Document ---
:1990 Author Organization [facility] t Address [address] [place] [address] Care Team Providers Name Role Phone Singer [...] Facility Department ID 2020-11-04 2020-11-04 NIRMALA Ronquillo [id number] 09:34:00 10:58:00 Gavin Emily [id number] [place] [id number] [place] [id number] 2020-11-04 2020-11-04 Orders Doctor SAWYER [id number] 00:00:00 00:00:00 Only UnassSAMARA barrios [id number] [place] [facility] [id number] 2019-05-14 2019-05-14 Emergency Aba Mendez [facility] [id number] 11:11:27 13:34:00 Annemarie Hinkle [id number] [place] [id number] [place] [id number] Results This patient has no known results.
--- NOTE | 2021-02-09 19:23 | ER ---
Nurse's Notes [facility] Name: Claire Singh Age: 30 yrs Sex: Female : 1990 Arrival Date: 02/09/2021 Time: 17:01 Bed Waiting Private MD: Diagnosis: ED Course: 02/09 17:01 Patient arrived in ED. as 17:40 Patient's name was called from ER lobby. No response. ph 17:40 Patient's name was called from ER lobby. Unable to locate patient. Will disposition as ph left without being seen by a provider. 19:22 Dre Mooney MD is Attending Physician. ph Administered Medications: No medications were administered Outcome: 19:23 Patient left the ED. ph Signatures: Cristina Dawn Patricia, RN RN ph
== END 2021-02-09 19:23 | disposition left against medical advice (07) ==
LOC: ER 17:00
DX: Z02.9 Encounter for administrative examinations, unspecified (principal)

== ENCOUNTER 2021-05-17 11:03 | Emergency (ER) | payer OTHER ==
--- OUTSIDE RECORDS SUMMARY | 2021-05-17 11:06 | XMS REPORT | Continuity of Care Document ---
:1990 Author Organization [facility] t Address [address] [place] [address] Care Team Providers Name Role Phone Singer [...] Facility Department ID 2020-11-04 2020-11-04 NIRMALA Ronquillo [id number] 09:34:00 10:58:00 Gavin Emily [id number] [place] [id number] [place] [id number] 2020-11-04 2020-11-04 Orders Doctor SAWYER [id number] 00:00:00 00:00:00 Only UnassSAMARA barrios [id number] [place] [facility] [id number] 2019-05-14 2019-05-14 Emergency Aba Mendez [facility] [id number] 11:11:27 13:34:00 Annemarie Hinkle [id number] [place] [id number] [place] [id number] [id number] Results This patient has no known results.
[2021-05-17 13:44] LABS: SARS-COV-2 RT PCR POSITIVE (NEGATIVE)
--- NOTE | 2021-05-17 14:04 | EDPHYS ---
Physician Documentation [facility] Name: Claire Singh Age: 30 yrs Sex: Female : 1990 Arrival Date: 05/17/2021 Time: 11:26 Bed Waiting Private MD: BIMAL Physician Jonh Blanco HPI: 05/17 14:29 This 30 yrs old Female presents to ER via Ambulatory with complaints of Flu kb Symptoms. 16:17 The patient or guardian reports cough, that is intermittent, described as mild, with no kb sputum, flu symptoms, low-grade fever, myalgias, no appetite. Onset: The symptoms/episode began/occurred 3 day(s) ago. Severity of symptoms: At their worst the symptoms were moderate, in the emergency department the symptoms are unchanged. Modifying factors: The symptoms are alleviated by nothing, the symptoms are aggravated by nothing. Associated signs and symptoms: The patient has no apparent associated signs or symptoms. The patient has not experienced similar symptoms in the past. The patient has not recently seen a physician. Pt reports cough, congestion, runny nose, headache, fatigue, malaise, fever, chills, bodyaches, loss of taste and smell. . Historical: - Allergies: 11:44 No Known Allergies; ll1 - PMHx: 11:44 Bipolar disorder; ll1 - PSHx: 11:44 section; Cholecystectomy; ll1 - Immunization history:: Client reports receiving the 2nd dose of the Covid vaccine, Flu vaccine is not up to date. - Social history:: Smoking status: Patient denies any tobacco usage or history of. ROS: 14:30 Abdomen/GI: Negative for abdominal pain, nausea, vomiting, diarrhea, and constipation. kb 14:30 Constitutional: Positive for body aches, chills, fatigue, fever, malaise. 14:30 ENT: Positive for rhinorrhea, sinus congestion, sore throat, loss of taste and smell. 14:30 Respiratory: Positive for cough, Negative for dyspnea on exertion, hemoptysis, orthopnea, pleurisy, shortness of breath, sputum production, wheezing. 14:30 Neuro: Positive for headache. 14:30 All other systems are negative. Exam: 16:18 Constitutional: This is a well developed, well nourished patient who is awake, alert, kb and in no acute distress. Head/Face: Normocephalic, atraumatic. ENT: Moist Mucous membranes Cardiovascular: Regular rate and rhythm with a normal S1 and S2. No gallops, murmurs, or rubs. No pulse deficits. Respiratory: Respirations even and unlabored. No increased work of breathing, no retractions or nasal flaring. Skin: Warm, dry with normal turgor. Normal color. MS/ Extremity: Pulses equal, no cyanosis. Neurovascular intact. Full, normal range of motion. Neuro: Awake and alert, GCS 15, oriented to person, place, time, and situation. Moves all extremities. Normal gait. Psych: Awake, alert, with orientation to person, place and time. Behavior, mood, and affect are within normal limits. Vital Signs: 11:42 BP 123 / 85; Pulse 78; Resp 18; Temp 98.8; Pulse Ox 100% ; Weight 97.52 kg; Height 5 ll1 ft. 6 in. (167.64 cm); Pain 8/10; 11:42 Body Mass Index 34.70 (97.52 kg, 167.64 cm) ll1 MDM: 11:47 Patient medically screened. kb 14:30 Data reviewed: vital signs, nurses notes. Data interpreted: Pulse oximetry: on room air kb is 100 %. Interpretation: normal. Counseling: I had a detailed discussion with the patient and/or guardian regarding: the historical points, exam findings, and any diagnostic results supporting the discharge/admit diagnosis, lab results, the need for outpatient follow up, a family practitioner, to return to the emergency department if symptoms worsen or persist or if there are any questions or concerns that arise at home. 05/17 13:44 Order name: COVID-19/FLU A+B; Complete Time: 14:03 EDMS Administered Medications: No medications were administered Disposition: 05/18 08:13 Co-signature as Attending Physician, Jonh Blanco MD I agree with the assessment and mak plan of care. Disposition Summary: 05/17/21 14:03 Discharge Ordered Location: Home kb Condition: Stable kb Diagnosis - Coronavirus infection, unspecified kb Followup: kb - With: Emergency Department - When: As needed - Reason: Worsening of condition Followup: kb - With: Private Physician - When: 2 - 3 days - Reason: Recheck today's complaints, Continuance of care, Re-evaluation by your physician Discharge Instructions: - Discharge Summary Sheet kb - Viral Respiratory Infection, [id number] kb - COVID-19 kb - COVID-19 Frequently Asked Questions kb - 10 Things You Can Do to Manage Your COVID-19 Symptoms at Home - [facility] kb Forms: - Medication Reconciliation Form kb - Thank You Letter kb - Antibiotic Education kb - Prescription Opioid Use kb Signatures: Dispatcher [employer] EDMS Sommer Duffy, CLAIM EXAMINER-C CLAIM EXAMINER-Jonh Patten MD MD cha Lewis, Lynsay RN RN ll1 Corrections: (The following items were deleted from the chart) 05/17 12:19 11:52 CORONAVIRUS+MR.LAB.BRZ ordered. EDMS EDMS 12:20 11:52 Influenza Screen (A \T\ B)+BA.LAB.BRZ ordered. EDMS EDMS
--- NOTE | 2021-05-17 14:04 | ER ---
Nurse's Notes [facility] Name: Claire Singh Age: 30 yrs Sex: Female : 1990 Arrival Date: 05/17/2021 Time: 11:26 Bed Waiting Private MD: Diagnosis: Coronavirus infection, unspecified Presentation: 05/17 11:42 Chief complaint: Patient states: Fatigue, POLLACK, fever, cough, chest tightness for 3 days. ll1 Fever up to 102 yesterday. Loss of taste today. Some nausea. Coronavirus screen: Vaccine status: Patient reports receiving the 2nd dose of the covid vaccine. Client denies travel out of the [place] in the last 14 days. congestion, cough unrelated to allergies, difficulty breathing, fatigue, fever, headache, nausea, loss of taste or smell, Client presents with at least one sign or symptom that may indicate coronavirus-19. Standard/surgical mask placed on the client. Ebola Screen: Patient denies travel to an Ebola-affected area in the 21 days before illness onset. Initial Sepsis Screen: Does the patient meet any 2 criteria? No. Patient's initial sepsis screen is negative. Does the patient have a suspected source of infection? Yes: Productive cough/pneumonia. Risk Assessment: Do you want to hurt yourself or someone else? Patient reports no desire to harm self or others. Onset of symptoms was May 15, 2021. 11:42 Method Of Arrival: Ambulatory ll1 11:42 Acuity: UYEN 4 ll1 Historical: - Allergies: 11:44 No Known Allergies; ll1 - PMHx: 11:44 Bipolar disorder; ll1 - PSHx: 11:44 section; Cholecystectomy; ll1 - Immunization history:: Client reports receiving the 2nd dose of the Covid vaccine, Flu vaccine is not up to date. - Social history:: Smoking status: Patient denies any tobacco usage or history of. Screenin:36 Abuse screen: Denies threats or abuse. Denies injuries from another. Nutritional ss screening: No deficits noted. Tuberculosis screening: Never had TB. Fall Risk None identified. Vital Signs: 11:42 BP 123 / 85; Pulse 78; Resp 18; Temp 98.8; Pulse Ox 100% ; Weight 97.52 kg; Height 5 ll1 ft. 6 in. (167.64 cm); Pain 8/10; 11:42 Body Mass Index 34.70 (97.52 kg, 167.64 cm) ll1 ED Course: 11:26 Patient arrived in ED. ds1 11:44 Triage completed. ll1 11:44 Sommer Duffy FNP-C is [facility]. kb 11:44 Jonh Blanco MD is Attending Physician. kb 11:44 Arm band placed on. ll1 14:36 Patient has correct armband on for positive identification. Bed in low position. Call ss light in reach. 14:36 No provider procedures requiring assistance completed. Patient did not have IV access ss during this emergency room visit. Administered Medications: No medications were administered Outcome: 14:03 Discharge ordered by . kb 14:36 Discharged to home ambulatory. ss 14:36 Condition: good 14:36 Discharge instructions given to patient, Instructed on discharge instructions, follow up and referral plans. Demonstrated understanding of instructions, follow-up care. 14:36 Patient left the ED. ss Signatures: Sommer Duffy FNP-C FNP-Emely Lia ds1 Yanet Grider, RN RN Debbie Smith RN RN ll1
[2021-05-17 14:58] VITALS: BP 123/85; TEMP 98.8; O2SAT 100
== END 2021-05-17 14:36 | disposition home or self-care (01) ==
LOC: ER 11:03
DX: U07.1 COVID-19 (principal)
CPT/HCPCS: 0240U; 99281